=== PATIENT | female | born 1980 | race Caucasian/White ===

== ENCOUNTER 2018-02-01 18:59 | Emergency (ER) | payer MEDICAID ==
[~2018-02-01] VITALS: Ht 160 cm; Wt 80.7 kg
[2018-02-01 19:05] VITALS: BP 128/78
--- NOTE | 2018-02-01 19:11 | NUR ---
[facility] STEAD[facility] GA[facility] AND VSS TO WAIT FOR AN AVAILABLE BED, GIVEN A CUP TO PROVIDE URINE SAMPLE.
--- NOTE | 2018-02-01 20:12 | NUR ---
PATIENT PRESENTS TO ED WITH VAGINAL BLEEDING. PT STATES BLEEDING OCCURS WITH URINATION, DENIES PAIN WITH URINATION, AND PREGNACNY TEST TAKEN 1 WEEK AGO WAS POSITIVE. DENIES N/V/D; SKIN IS PINK/WARM/DRY; PATIENT STATES PAIN OF 0/10 AT THIS TIME; VSS; PATIENT POSITIONED FOR COMFORT; HOB ELEVATED; BEDRAILS UP X2; BED DOWN. ER MD MADE AWARE OF PT STATUS.
[2018-02-01 20:37] LABS: BASOPHILS % (AUTO) 0.2 % (0.0-2.0); EOSINOPHILS % (AUTO) 0.5 % (0.0-4.0); HEMATOCRIT 40.1 % (36-48); HEMOGLOBIN 13.5 g/dL (12.0-16.0); LYMPHOCYTES # (AUTO) 1.7 K/uL (2.5-16.5); LYMPHOCYTES % (AUTO) 25.3 % (20.5-51.1); MEAN CORPUSCULAR HEMOGLOBIN 29 pg (27-31); MEAN CORPUSCULAR HGB CONC 34 g/dL (33-37); MEAN CORPUSCULAR VOLUME 85.8 fL (80-94); MONOCYTES # (AUTO) 0.7 K/uL (0.8-1.0); MONOCYTES % (AUTO) 10.9 % (1.7-9.3); NEUTROPHILS # (AUTO) 4.2 K/uL (1.8-7.7); NEUTROPHILS % (AUTO) 63.1 % (42.2-75.2); PLATELET COUNT (AUTO) 287 K/uL (140-450); RED BLOOD CELL COUNT(AUTO) 4.68 MIL/uL (4.20-5.40); WHITE BLOOD COUNT (AUTO) 6.6 K/uL (4.8-10.8)
--- NOTE | 2018-02-01 21:00 | NUR ---
Ultrasound at bedside.
[2018-02-01 21:32] LABS: APPEARANCE,URINE CLEAR (CLEAR); BILIRUBIN,URINE NEGATIVE (NEGATIVE); BLOOD, URINE LARGE (NEGATIVE); COLOR,URINE YELLOW (YELLOW); LEUKOCYTE ESTERASE ,URINE NEGATIVE (NEGATIVE); NITRITE, URINE NEGATIVE (NEGATIVE); UGLUCOSE NEGATIVE (NEGATIVE)
--- NOTE | 2018-02-01 22:46 | NUR ---
Dr. Back evaluating patient at bedside.
[2018-02-01 22:52] VITALS: BP 100/60
[2018-02-01 23:16] LABS: RBC,URINE 11-20 (MOD) /HPF (0-5); WBC,URINE 0-5 (RARE) /HPF (0-5)
== END 2018-02-01 22:52 | disposition home or self-care (01) ==
LOC: MED 18:59
DX: O20.0 Threatened abortion (principal); Z3A.08 8 weeks gestation of pregnancy
CPT/HCPCS: 36415; 76817; 81001; 81003; 81025; 84702; 85025; 86900; 86901; 99284; Q0092

== ENCOUNTER 2018-02-12 02:08 | Inpatient (IN) | payer MEDICAID ==
[~2018-02-12] VITALS: Ht 154.9 cm; Wt 68.9 kg
[2018-02-12 02:15] VITALS: BP 125/80
--- NOTE | 2018-02-12 02:15 | NUR ---
VAGNAL BLEEDING STARTING ASSEMBLER CRIMPER , PT IS 11 WEEKS . [id number]. PT IS NAUSEOUS, NO VOMITING. ABD IS ROUND, SOFT, NON TENDER, ACTIVE BS X4. PT PROVIDED W/ PAD AND UNDERWEAR. BLEEDING CONTROLLED AT THIS TIME. NO PMH
--- NOTE | 2018-02-12 02:15 | NUR ---
PT TO BED 11
--- NOTE | 2018-02-12 02:18 | NUR ---
PT UNABLE TO PROVIDE URINE SAMPLE AT THIS TIME. PROVIDED W/ WATER.
--- NOTE | 2018-02-12 03:30 | NUR ---
PT SATURATED PAD, PROVIDED W/ NEW PAD AND UNDERWEAR. PT AMBULATED TO BATHROOM.
[2018-02-12] MEDS ORDERED: ACETAMINOPHEN EXTRA STRENGTH 500 MG TAB PO ONE (03:50)
[2018-02-12] MEDS ORDERED: NACL 0.9% 1,000 ML IV ONE (03:50)
--- NOTE | 2018-02-12 04:00 | NUR ---
DR LOCKWOOD AT BEDSIDE EVALUATING PT.
[2018-02-12 04:17] LABS: BASOPHILS % (AUTO) 0.2 % (0.0-2.0); EOSINOPHILS # (AUTO) 0.1 K/uL (0-0.4); EOSINOPHILS % (AUTO) 1.1 % (0.0-4.0); HEMATOCRIT 36.6 % (36-48); HEMOGLOBIN 12.1 g/dL (12.0-16.0); LYMPHOCYTES # (AUTO) 1.7 K/uL (2.5-16.5); LYMPHOCYTES % (AUTO) 21.4 % (20.5-51.1); MEAN CORPUSCULAR HEMOGLOBIN 29 pg (27-31); MEAN CORPUSCULAR HGB CONC 33 g/dL (33-37); MEAN CORPUSCULAR VOLUME 86.2 fL (80-94); MONOCYTES # (AUTO) 0.6 K/uL (0.8-1.0); MONOCYTES % (AUTO) 7.8 % (1.7-9.3); NEUTROPHILS # (AUTO) 5.6 K/uL (1.8-7.7); NEUTROPHILS % (AUTO) 69.5 % (42.2-75.2); PLATELET COUNT (AUTO) 249 K/uL (140-450); RED BLOOD CELL COUNT(AUTO) 4.25 MIL/uL (4.20-5.40); RED CELL DISTRIBUTION WIDTH 13.8 % (11.6-13.7); WHITE BLOOD COUNT (AUTO) 8.1 K/uL (4.8-10.8)
--- NOTE | 2018-02-12 04:40 | NUR ---
PT HAD LARGE CLOT/POSSIBLE PRODUCT OF CONCEPTION PASSED AT BEDSIDE, BLEEDING CONTROLLED AFTER PASSING, VSS, PT HELPED TO BE CLEANED, PLACED ON NEW CLEAN CHUX AND DIAPER AND PAD. PT TEARFUL, AND CALM AT THIS TIME.
--- NOTE | 2018-02-12 05:00 | NUR ---
PT STATES SHE DOES NOT HAVE TO URINATE AT THIS TIME.
[2018-02-12] MEDS ORDERED: DOCUSATE SODIUM 100 MG GELCAP PO PRN (05:15)
[2018-02-12] MEDS ORDERED: HYDROcodone/APAP 7.5/325 MG 1 TAB PO PRN (05:15)
[2018-02-12] MEDS ORDERED: ONDANSETRON 4 MG/2 ML VIAL IM/IVP PRN (05:15)
[2018-02-12] MEDS ORDERED: ACETAMINOPHEN 325 MG TAB PO PRN (05:15)
--- NOTE | 2018-02-12 05:16 | NUR ---
CALLED FOR TELE BED, PRINTING ESTIMATOR WILL CALL BACK FOR INFO
[2018-02-12 05:35] VITALS: BP 95/65
--- NOTE | 2018-02-12 05:35 | NUR ---
RECEIVED PT FROM ER NURSE TRANSFERRED VIA [facility].PT TELE..PT 11 WEEKS W/ UTERINE BLEEDING PRESENT SIZE OF A GOLF BALL. RED IN COLOR, SOLID. W/ LEFT FA PATENT.
--- NOTE | 2018-02-12 05:35 | NUR ---
PT PASSED ANOTHER CLOT ABOUT THE SIZE OF A TENNIS BALL, BLEEDING CONTROLLED, PT CLEANED AND CHANGED. VSS , PT AWAKE AND ACTING APPROPRIATE.
--- NOTE | 2018-02-12 05:40 | NUR ---
Patient will be admitted to care of DR VILLATORO. Admited to TELE. Will go to [id number]. Belongings list completed. Report to DONNA MALLOY.
--- NOTE | 2018-02-12 06:00 | NUR ---
PTS BP LOW TAKEN 95/55. WITH PAIN LEVEL OF 6/AO NOTED./ NORCO GIVEN ORDERED. DR. UGARTE AWARE OF BOTH ABNORMAL VS.
[2018-02-12] MEDS: NACL 0.9% 1,000 ML IV SCH ×2 (06:26→17:57)
--- NOTE | 2018-02-12 06:30 | NUR ---
PTS PAIN INCREASED TO 8/10. INFORMED DR. UGARTE. ENDORSE TO AM PHYSICIAN PER DR. UGARTE .WILL ENDORSE TO NEXT NURSE RE: PAIN LEVEL INCREASE.
--- NOTE | 2018-02-12 07:00 | NUR ---
PT'S PLACED ON [place] POSITION DUE TO BLEEDING, AND DECREASED BP. 95/55. DR. PORTILLO.
[2018-02-12 07:01] LABS: ANION GAP 18.1 (8-16); CARBON DIOXIDE 16.5 mmol/L (21-32); CREATININE 0.6 mg/dL (0.6-1.3); POTASSIUM 3.6 mmol/L (3.5-5.1); TOTAL BILIRUBIN 0.4 mg/dL (0.0-1.0)
--- NOTE | 2018-02-12 07:30 | NUR ---
ENDORSED TO AM SHIFT NURSE. PT STILL PASSING OUT BLOOD CLOTS, PT 10/11, AWAITING TO INPUT NEW MEDS. AND ORDERS.
--- NOTE | 2018-02-12 07:31 | NUR ---
SBAR REPORT RECEIVED AT BEDSIDE BY NIGHT RN. PATIENT IS ALERT AND ORIENTED, FOLLOWS COMMANDS, ICELANDIC SPEAKING. C/O ABDOMINAL PAIN, NOTIFIED MD REGARDING UNRELIEVED ABDOMINAL PAIN AFTER PO MEDICATION. ON ROOM AIR. IV SITE TO LFA PATENT AND INTACT. AT BEDSIDE. UPDATED ON CURRENT PLAN OF CARE, IN AGREEMENT. PATIENT SEEN BY PCP AT BEDSIDE, ALL QUESTIONS AND CONCERNS MET.
[2018-02-12 07:36] LABS: PROTHROMBIN TIME 8.9 secs (10.8-13.4)
[2018-02-12 08:00] VITALS: BP 95/63
[2018-02-12 08:27] LABS: FREE T4 (FREE THYROXINE) 1.14 ng/dL (0.76-1.46); MAGNESIUM 1.8 mg/dL (1.8-2.4); PHOSPHORUS 4.1 mg/dL (2.5-4.9); THYROID STIMULATING HORMONE 1.87 uIU/mL (0.34-3.74)
--- NOTE | 2018-02-12 08:31 | NUR ---
PATIENT HAS BEEN SCREENED AND CATEGORIZED LOW NUTRITION RISK. PATIENT WILL BE SEEN WITHIN 7 DAYS OF ADMISSION. 02/18/[address]
[2018-02-12] MEDS ORDERED: MORPHINE SULFATE 4 MG/ML SYR IVP PRN (08:40)
[2018-02-12 10:48] LABS: CHOL/HDL RATIO 2.3 (1-4.5)
--- NOTE | 2018-02-12 11:20 | NUR ---
[place] PAD CHECKED WITH CHARGE NURSE WESLEY. SCANT BLEEDING NOTED. DR. RIVERA AWARE OF PATIENT CONDITION. PATIENT CONTINUED ON IVF.
--- NOTE | 2018-02-12 11:44 | NUR ---
DUE TO RECEIVING A FNS REFERRAL, PATIENT HAS BEEN CATEGORIZED HIGH RISK. PATIENT WILL BE SEEN WITHIN 1-2 DAYS FROM RECEIVING REFERRAL. 02/13/[address]
[2018-02-12 12:00] VITALS: BP 109/66
--- NOTE | 2018-02-12 12:40 | NUR ---
PATIENT HAVING U/S AT BEDSIDE. NO ACUTE DISTRESS NOTED.
[2018-02-12 13:12] LABS: BASOPHILS % (AUTO) 0.1 % (0.0-2.0); HEMATOCRIT 28.7 % (36-48); HEMOGLOBIN 9.6 g/dL (12.0-16.0); LYMPHOCYTES # (AUTO) 0.6 K/uL (2.5-16.5); LYMPHOCYTES % (AUTO) 5.8 % (20.5-51.1); MEAN CORPUSCULAR HEMOGLOBIN 29 pg (27-31); MEAN CORPUSCULAR HGB CONC 34 g/dL (33-37); MEAN CORPUSCULAR VOLUME 86.5 fL (80-94); MONOCYTES # (AUTO) 0.3 K/uL (0.8-1.0); MONOCYTES % (AUTO) 2.6 % (1.7-9.3); NEUTROPHILS # (AUTO) 9.9 K/uL (1.8-7.7); NEUTROPHILS % (AUTO) 91.5 % (42.2-75.2); PLATELET COUNT (AUTO) 213 K/uL (140-450); RED BLOOD CELL COUNT(AUTO) 3.32 MIL/uL (4.20-5.40); RED CELL DISTRIBUTION WIDTH 13.7 % (11.6-13.7); WHITE BLOOD COUNT (AUTO) 10.8 K/uL (4.8-10.8)
[2018-02-12 13:53] LABS: APPEARANCE,URINE CLOUDY (CLEAR); BILIRUBIN,URINE NEGATIVE (NEGATIVE); BLOOD, URINE 3+ (NEGATIVE); COLOR,URINE YELLOW (YELLOW); LEUKOCYTE ESTERASE ,URINE 1+ (NEGATIVE); NITRITE, URINE NEGATIVE (NEGATIVE); PH,URINE 5.5 (5.0-9.0); UGLUCOSE NEGATIVE (NEGATIVE)
[2018-02-12 14:10] LABS: BARBITURATE, URINE NEG. ng/ml (NEG <=200); BENZODIAZEPINE, URINE NEG. ng/mL (NEG <=200); CANNABINOID, URINE NEG. ng/mL (NEG <=50); COCAINE, URINE NEG. ng/mL (NEG <=300); OPIATE, URINE POS. ng/mL (NEG <=2000); PHENCYCLIDINE SCREEN,URINE NEG. ng/mL (NEG <=25)
[2018-02-12 14:16] LABS: RBC,URINE TOO NUMEROUS TO COUN /HPF (0-5)
[2018-02-12 14:17] LABS: WBC,URINE 6-15 (FEW) /HPF (0-5)
[2018-02-12 16:00] VITALS: BP 95/64
--- NOTE | 2018-02-12 16:20 | NUR ---
PATIENT RESTING IN BED. DENIES ABDOMINAL PAIN. NO VAGINAL BLEEDING NOTED AT THIS TIME. NO ACUTE DISTRESS NOTED. FAMILY AT BEDSIDE.
--- NOTE | 2018-02-12 18:10 | NUR ---
PATIENT SEEN BY DR. BARBA AT BEDSIDE. DISCUSSED ULTRASOUND RESULTS REGARDING HEART RATE. NO NEED FOR ANY SURGERY AT THIS TIME. PER MD, OKAY TO BE D/C'D TO HOME FROM HIS POINT OF VIEW. TRANSLATION DONE AT BEDSIDE BY MD'S STAFF.
--- NOTE | 2018-02-12 19:46 | NUR ---
SBAR REPORT GIVEN TO RN LISA AT PT BEDSIDE. PATIENT RESTING IN BED, AT BEDSIDE. NO ACUTE DISTRESS NOTED.
--- NOTE | 2018-02-12 19:50 | NUR ---
RECEIVED PT FROM CHAIM RAVI RN PT [id number] AMBULATORY NOT ACTIVE BLEEDING AT THIS TIME DR BARBA IS HERE AND SEE THE PT AND SEE THE VAGINAL ULTRASOUND WHERE DEFINE FETU HEART BEAT PRESENT
[2018-02-12 20:00] VITALS: BP 90/52
[2018-02-12 20:59] LABS: HEMATOCRIT 24.8 % (36-48); HEMOGLOBIN 8.4 g/dL (12.0-16.0)
[2018-02-13] VITALS: BP 90/50
--- NOTE | 2018-02-13 | NUR ---
PT REMAIN STABLE SLEEPING WELL NOT SIGN OF VAGINAL BLEEDING NOTED ON TELMETRY SR
[2018-02-13] MEDS: NACL 0.9% 1,000 ML IV SCH ×2 (03:47→13:39)
--- NOTE | 2018-02-13 03:53 | NUR ---
PT VOIDING WELL AMBULATES TO THE RESTROOM NOT VAGINAL BLEEDING ON TELMETRY SR
[2018-02-13 06:00] VITALS: BP 89/48
--- NOTE | 2018-02-13 06:29 | NUR ---
PT DENIES ANY AIN OR DISCOMFORT DENIES ANY VAGINAL BLEEDING IV ON LEFT AC INFUSING WELL ON TELE SR
[2018-02-13] MEDS ORDERED: LACTOBACILLUS RHAMNOSUS GG 1 EACH CAP PO SCH (06:30)
[2018-02-13 07:21] LABS: BASOPHILS % (AUTO) 0.1 % (0.0-2.0); EOSINOPHILS % (AUTO) 0.4 % (0.0-4.0); HEMATOCRIT 22.9 % (36-48); HEMOGLOBIN 7.9 g/dL (12.0-16.0); LYMPHOCYTES # (AUTO) 1.6 K/uL (2.5-16.5); LYMPHOCYTES % (AUTO) 20.8 % (20.5-51.1); MEAN CORPUSCULAR HEMOGLOBIN 30 pg (27-31); MEAN CORPUSCULAR HGB CONC 35 g/dL (33-37); MONOCYTES # (AUTO) 0.6 K/uL (0.8-1.0); MONOCYTES % (AUTO) 7.6 % (1.7-9.3); NEUTROPHILS # (AUTO) 5.5 K/uL (1.8-7.7); NEUTROPHILS % (AUTO) 71.1 % (42.2-75.2); PLATELET COUNT (AUTO) 176 K/uL (140-450); RED BLOOD CELL COUNT(AUTO) 2.66 MIL/uL (4.20-5.40); RED CELL DISTRIBUTION WIDTH 14.1 % (11.6-13.7); WHITE BLOOD COUNT (AUTO) 7.7 K/uL (4.8-10.8)
--- NOTE | 2018-02-13 07:30 | NUR ---
RECEIVED PT FROM EXECUTIVE BUSINESS COACH NURSELISA, PT IS AWAKE AND SEATED ON THE BED WITH SIDE RAILS UP AND CALL LIGHT WITHIN REACH, PT HAS AN IV LINE ON THE LEFT AC G. 20, INTACT WITH NS INFUSING AT 100ML/HR. PT DENIES PAIN AND BLEEDING AT THIS TIME. NO SIGN OF DISTRESS NOTED AND WILL CONTINUE TO MONITOR PT.
[2018-02-13 07:35] LABS: ANION GAP 12.8 (8-16); CARBON DIOXIDE 22.2 mmol/L (21-32); CREATININE 0.5 mg/dL (0.6-1.3)
[2018-02-13 07:37] LABS: MAGNESIUM 1.7 mg/dL (1.8-2.4); PHOSPHORUS 2.9 mg/dL (2.5-4.9)
[2018-02-13 08:00] VITALS: BP 97/53
[2018-02-13 08:18] LABS: T4 (THYROXINE) 8.1 ug/dL (4.5-12.0)
[2018-02-13] MEDS ORDERED: MAG SULF 2000 MG/WATER PREMIX 50 ML IV ONE (09:15)
[2018-02-13] MEDS: MAGNESIUM SULFATE 1GM in DEXTROSE 5% 100 ML PREMIX IV SCH ×2 (09:49→10:58)
--- NOTE | 2018-02-13 09:49 | NUR ---
PT IS AWAKE AND LYING ON THE BED, IV MAGNESIUM GIVEN TO PT AND PT TOLERATED IT. NO SIGN OF DISTRESS NOTED. WILL CONTINUE TO MONITOR PT.
[2018-02-13 10:21] LABS: HEMATOCRIT 22.5 % (36-48); HEMOGLOBIN 7.6 g/dL (12.0-16.0)
--- NOTE | 2018-02-13 10:58 | NUR ---
PT IS AWAKE AND LYING ON THE BED, STARTED THE SECOND BAG IV IV MAGNESIUM NOW.
[2018-02-13 12:00] VITALS: BP 96/58
--- NOTE | 2018-02-13 12:25 | NUR ---
IV POTASSIUM GIVEN VIA IVPB WAS STARTED TO PT NOW, PT IS AWAKE AND LYING ON THE BED AND EATING HER LUNCH. NO SIGN OF DISTRESS NOTED, WILL MONITOR PT.
[2018-02-13] MEDS ORDERED: AMOX-999 PO (12:32)
[2018-02-13] MEDS ORDERED: PREN-380 PO (12:32)
[2018-02-13] MEDS ORDERED: POTASSIUM CHLORIDE 40 MEQ, LIDOCAINE 1% 25 MG in NACL 0.9% 250 ML IV SCH (13:00)
[2018-02-13] MEDS ORDERED: KCL 20 MEQ/WATER INJ PREMIX 200 ML IV SCH (13:00)
[2018-02-13 16:00] VITALS: BP 100/62
--- NOTE | 2018-02-13 17:55 | NUR ---
DISCHARGED INSTRUCTIONS AND MEDICATION PRESCRIPTIONS WERE DISCUSSED WITH PT VIA AN SHOE RECONDITIONER , BRYANNA #[id number], PT VERBALIZED UNDERSTANDING.
--- NOTE | 2018-02-13 18:15 | NUR ---
DISCHARGED PT VIA WHEELCHAIR WITH , DISCHARGED TEACHINGS AND INSTRUCTIONS GIVEN VIA AN CALL OR CONTACT CENTRE MANAGER AND PT VERBALIZED UNDERSTANDING, IV LINE AND ARM BAND REMOVED, PT DENIES PAIN AND IS STABLE AT THIS TIME.
== END 2018-02-13 18:15 | disposition home or self-care (01) | DRG 566 ==
LOC: MED 02:08 → MTU 05:14
PROVIDERS: ADMIT General Practice; ATTEND General Practice
DX: O46.91 Antepartum hemorrhage, unspecified, first trimester (principal); D62 Acute posthemorrhagic anemia; E83.42 Hypomagnesemia; O24.419 Gestational diabetes mellitus in pregnancy, unspecified control; O23.41 Unspecified infection of urinary tract in pregnancy, first trimester; O99.011 Anemia complicating pregnancy, first trimester; O25.11 Malnutrition in pregnancy, first trimester; O99.281 Endocrine, nutritional and metabolic diseases complicating pregnancy, first trimester; E87.6 Hypokalemia; Z98.891 History of uterine scar from previous surgery; Z3A.10 10 weeks gestation of pregnancy
CPT/HCPCS: 36415; 76817; 80048; 80053; 80305; 81001; 82150; 83036; 83690; 83735; 83880; 84100; 84436; 84439; 84443; 84479; 84484; 84702; 85018; 85025; 85610; 85730; 86900; 86901; 87081; 87086; 96360; 99285; J0696; J2001; J2270; J3480; J7030; J7060; Q0092

== ENCOUNTER 2019-07-24 00:50 | Emergency (ER) | payer MEDICAID ==
[~2019-07-24] VITALS: Ht 142.2 cm; Wt 64.4 kg
[~2019-07-24 00:50] MED LIST: AMOX-999 PO; PREN-380 PO
[2019-07-24 01:03] VITALS: BP 121/77
--- NOTE | 2019-07-24 01:03 | NUR ---
PT AMBULATED TO BED 06.
--- NOTE | 2019-07-24 01:07 | NUR ---
38 YO F BIB SELF FOR C/C OF 5/10 LEFT MIDDLE FINGER PAIN X1 WEEK. PT STATES AN 18LB BOX FELL ON HER FINGER ONE WEEK AGO AND HER FINGER HAS BEEN INCREASINGLY RED AND EDEMATOUS SINCE. PT IS ABLE TO MOVE HER FINGER BUT IS UNABLE TO BEND IT AT THE KNUCLE JOINT. PT IS 20 WEEKS PREGANT (DUE DATE Dec) SO SHE HAS BEEN HESITANT TO SEEK MEDICAL CARE BECAUSE SHE DOESNT WANT TO TAKE MEDICATIONS DURING . PT DENIES TAKING ANY OTC MEDICATIONS FOR PAIN BUT HAS BEEN APPLYING "VOLFENAL GEL" TOPICALLY TO SITE. DENIES TRAVEL, FEVER, COUGH, SOB. BED LOCKED AND IN LOWEST POSITION. SIDE RAILS X1. NO MED HX NO RX NKA
--- NOTE | 2019-07-24 01:21 | NUR ---
Dr. Delaney examining patient.
[2019-07-24] MEDS ORDERED: KETOROLAC 60 MG/2 ML VIAL IM ONE (01:25)
--- NOTE | 2019-07-24 01:25 | NUR ---
X-Ray at bedside.
[2019-07-24] MEDS ORDERED: SULFAMETH/TRIMETH DS 800/160MG 1 TAB PO ONE (01:35)
[2019-07-24] MEDS ORDERED: cephALEXin 500 MG CAP PO ONE (01:35)
[2019-07-24 01:53] VITALS: BP 121/77
--- NOTE | 2019-07-24 01:53 | NUR ---
Patient discharged with v/s stable. Written and verbal after care instructions given and explained. Patient alert, oriented and verbalized understanding of instructions. Ambulatory with steady gait. All questions addressed prior to discharge. ID band removed. Patient advised to follow up with PMD. Rx of BACTRIM, KEFLEX, MOTRIN given. Patient educated on indication of medication including possible reaction and side effects. Opportunity to ask questions provided and answered.
== END 2019-07-24 01:53 | disposition home or self-care (01) ==
LOC: MED 00:50
DX: O26.891 Other specified pregnancy related conditions, first trimester (principal); L03.012 Cellulitis of left finger; Z79.899 Other long term (current) drug therapy
CPT/HCPCS: 29130; 73130; 96372; 99283; J1885; Q0092

== ENCOUNTER 2019-10-03 12:21 | Observation (INO) | payer MEDICAID, SELFPAY ==
[~2019-10-03] VITALS: Ht 152.4 cm; Wt 63.5 kg
[2019-10-03 14:05] LABS: APPEARANCE,URINE CLEAR (CLEAR); BILIRUBIN,URINE NEGATIVE (NEGATIVE); BLOOD, URINE NEGATIVE (NEGATIVE); COLOR,URINE YELLOW (YELLOW); LEUKOCYTE ESTERASE ,URINE NEGATIVE (NEGATIVE); NITRITE, URINE NEGATIVE (NEGATIVE); UGLUCOSE NEGATIVE (NEGATIVE)
[2019-10-03 14:07] LABS: BASOPHILS % (AUTO) 0.2 % (0.0-2.0); EOSINOPHILS % (AUTO) 0.7 % (0.0-4.0); HEMATOCRIT 37.2 % (36-48); HEMOGLOBIN 12.5 g/dL (12.0-16.0); LYMPHOCYTES # (AUTO) 1.1 K/uL (2.5-16.5); LYMPHOCYTES % (AUTO) 17.2 % (20.5-51.1); MEAN CORPUSCULAR HEMOGLOBIN 30 pg (27-31); MEAN CORPUSCULAR HGB CONC 34 g/dL (33-37); MEAN CORPUSCULAR VOLUME 88.4 fL (80-94); MONOCYTES # (AUTO) 0.6 K/uL (0.8-1.0); MONOCYTES % (AUTO) 9.4 % (1.7-9.3); NEUTROPHILS # (AUTO) 4.6 K/uL (1.8-7.7); NEUTROPHILS % (AUTO) 72.5 % (42.2-75.2); PLATELET COUNT (AUTO) 246 K/uL (140-450); RED CELL DISTRIBUTION WIDTH 14.3 % (11.6-13.7); WHITE BLOOD COUNT (AUTO) 6.4 K/uL (4.8-10.8)
[2019-10-03 14:23] LABS: BARBITURATE, URINE NEGATIVE ng/ml (NEG <=200); BENZODIAZEPINE, URINE NEGATIVE ng/mL (NEG <=200); CANNABINOID, URINE NEGATIVE ng/mL (NEG <=50); COCAINE, URINE NEGATIVE ng/mL (NEG <=300); OPIATE, URINE NEGATIVE ng/mL (NEG <=2000); PHENCYCLIDINE SCREEN,URINE NEGATIVE ng/mL (NEG <=25)
[2019-10-03 14:31] LABS: PROTHROMBIN TIME 9.3 secs (10.8-13.4)
[2019-10-03 17:57] VITALS: BP 111/66
[2019-10-05 15:10] LABS: HEPATITIS B SURFACE ANTIGEN Negative (Negative)
[2019-10-05 22:08] LABS: ALBUMIN 2.7 g/dL (3.4-5.0); ANION GAP 15.1 (8-16); CARBON DIOXIDE 21.4 mmol/L (21-32); CREATININE 0.5 mg/dL (0.6-1.3); POTASSIUM 3.5 mmol/L (3.5-5.1); TOTAL BILIRUBIN 0.5 mg/dL (0.0-1.0)
[2019-10-06 06:07] LABS: CHLAMYDIA TRACHOMATIS AMP DNA Negative (Negative)
== END 2019-10-03 18:10 | disposition home or self-care (01) ==
LOC: MLD 12:21
PROVIDERS: ADMIT Obstetrics & Gynecology; ATTEND Obstetrics & Gynecology
DX: Z03.818 Encounter for observation for suspected exposure to other biological agents ruled out (principal); O36.8130 Decreased fetal movements, third trimester, not applicable or unspecified; O9A.213 Injury, poisoning and certain other consequences of external causes complicating pregnancy, third trimester; O34.219 Maternal care for unspecified type scar from previous cesarean delivery; Z3A.28 28 weeks gestation of pregnancy; W18.39XA Other fall on same level, initial encounter; Y93.89 Activity, other specified; Y92.89 Other specified places as the place of occurrence of the external cause
CPT/HCPCS: 36415; 76805; 76819; 80053; 80305; 81003; 83036; 85025; 85379; 85384; 85610; 85730; 86592; 86703; 86762; 86886; 86900; 86901; 87086; 87340; 87491; G0378; Q0092; U0003